=== PATIENT | female | born 1955 | race Caucasian/White ===

== ENCOUNTER 2018-02-17 14:21 | Emergency (ER) | payer OTHER ==
--- NOTE | 2018-02-17 14:58 | EDPHY ---
HPI/HX/ROS/PE/MDM Narrative: CHIEF COMPLAINT: "pain in the center of my chest" HPI: The patient is a 62 y/o female 1 week out from a recent cardiac catheterization complaining of waxing and waning substernal "heavy" chest pain onset today around 14:00, about 1.5 hours ago while sitting at work. Earlier this month she had a syncopal episode with nausea and sensation of "something terribly wrong" and eventually saw a PCP that performed an EKG that showed changes. This ultimately led to an admission at [facility] and on 02/09/18, 8 days ago, she underwent a catheterization and stress echocardiogram. She reports the echocardiogram showed the "left side of my heart doesn't move correctly when I' m stressed," but the catheterization was essentially normal. She is scheduled to follow up with her rolling machine tender and a GI doctor soon. Today is the first time she has experienced chest pain. She notes associated "teeth pain." No associated dyspnea, nausea, vomiting, abdominal pain, fever, recent illness, recent trauma. REVIEW OF SYSTEMS: Aside from elements discussed in the HPI, a comprehensive 10-point review of systems was reviewed and is negative. PMH: Abnormal EKG/echo - Dr. Katt Roman. SOCIAL HISTORY: Smoker. Employed. Prior medical records reviewed via [employer] including cardiac procedures at [facility] 02/09/18. Stress echo showed anterolateral ST depression with anterolateral wall motion abnormalities during stress. PHYSICAL EXAM: General:Patient is alert, in no acute distress. ENT:Eyes are normal to inspection. ENT inspection normal. Neck: Normal inspection. Full range of motion. Respiratory:No respiratory distress. Breath sounds normal bilaterally. Cardiovascular: Regular rate and rhythm. Strong peripheral pulses. Normal cap refill. Abdomen:The abdomen is nontender to palpation. There are no peritoneal signs. Back: Normal to inspection. No tenderness to palpation. Skin: Normal color. No rash. Warm and dry. Extremities: Normal appearance. Full range of motion. Neuro: Oriented x3. Normal motor function. Normal sensory function. ED Course: This is a 62 y/o female with a history of a recent abnormal stress echocardiogram and clear catheterization who presents with a 1.5-hour history of substernal chest pressure onset while at rest at work today. Pain has been relatively constant, though is currently waning somewhat. She noted some radiation of pain to her teeth/jaw. Plan for standard chest pain work up including IV, labs, EKG, chest x-ray. 0.4mg SL nitroglycerin administered. The 12 lead EKG was interpreted by myself. Normal sinus rhythm. See hard copy and/or "tracemaster" electronic copy for interpretation. POC troponin: 0.00. 1605: No improvement after nitroglycerin. 1609: Consulted with Dr. Pak, rolling machine tender. He recommends GI cocktail and repeat troponin. 1625: Reassessed patient and discussed findings and recommendations. She now reports her pain has mostly improved except when she takes a deep breath. D- dimer ordered. 1918: Patient chest pain free and wants to go home. Repeat troponin at 6h is still negative, but slightly up from previous. I discussed this with patient and offered her admission for further testing and observation as well as cardiology consultation, but she declines. She promises to return to the ED immediately for any return of chest pain or worsening of condition. - Data Points Imaging Results: Imaging Impressions Chest X-Ray 02/17/18 15:33 Impression: Underlying hyperinflation and interstitial lung disease; no acute cardiopulmonary abnormality identified.. Imaging: I viewed and interpreted images myself Laboratory Results: Laboratory Results 02/17/18 14:44 02/17/18 14:44 02/17/18 02/17/18 02/17/18 18:08 14:55 14:47 WBC RBC Hgb Hct MCV MCH MCHC RDW Plt Count MPV Neut % (Auto) Lymph % (Auto) Candler % (Auto) Eos % (Auto) Baso % (Auto) Nucleat RBC Rel Count Absolute Neuts (auto) Absolute Lymphs (auto) Absolute Monos (auto) Absolute Eos (auto) Absolute Basos (auto) Absolute Nucleated RBC Immature Gran % Immature Gran # D-Dimer 0.42 ug/mLFEU ug/mLFEU (0.00-0.50) Sodium Potassium Chloride Carbon Dioxide Anion Gap BUN Creatinine Estimated GFR Glucose Calcium POC Troponin I 0.01 ng/mL ng/mL 0.00 ng/mL ng/mL (0.00-0.08) (0.00-0.08) 02/17/18 02/17/18 14:44 14:44 WBC 5.91 10^3/uL 10^3/uL (3.80-9.50) RBC 3.55 10^6/uL L 10^6/uL (4.18-5.33) Hgb 10.9 g/dL L g/dL (12.6-16.3) Hct 32.8 % L % (38.0-47.0) MCV 92.4 fL fL (81.5-99.8) MCH 30.7 pg pg (27.9-34.1) MCHC 33.2 g/dL g/dL (32.4-36.7) RDW 12.6 % % (11.5-15.2) Plt Count 266 10^3/uL 10^3/uL (150-400) MPV 10.0 fL fL (8.7-11.7) Neut % (Auto) 55.8 % % (39.3-74.2) Lymph % (Auto) 32.1 % % (15.0-45.0) Candler % (Auto) 10.3 % % (4.5-13.0) Eos % (Auto) 0.8 % % (0.6-7.6) Baso % (Auto) 0.7 % % (0.3-1.7) Nucleat RBC Rel Count 0.0 % % (0.0-0.2) Absolute Neuts (auto) 3.29 10^3/uL 10^3/uL (1.70-6.50) Absolute Lymphs (auto) 1.90 10^3/uL 10^3/uL (1.00-3.00) Absolute Monos (auto) 0.61 10^3/uL 10^3/uL (0.30-0.80) Absolute Eos (auto) 0.05 10^3/uL 10^3/uL (0.03-0.40) Absolute Basos (auto) 0.04 10^3/uL 10^3/uL (0.02-0.10) Absolute Nucleated RBC 0.00 10^3/uL 10^3/uL (0-0.01) Immature Gran % 0.3 % % (0.0-1.1) Immature Gran # 0.02 10^3/uL 10^3/uL (0.00-0.10) D-Dimer Sodium 140 mEq/L mEq/L (135-145) Potassium 3.9 mEq/L mEq/L (3.3-5.0) Chloride 106 mEq/L mEq/L (97-110) Carbon Dioxide 22 mEq/l mEq/l (22-31) Anion Gap 12 mEq/L mEq/L (8-16) BUN 25 mg/dL H mg/dL (7-23) Creatinine 1.0 mg/dL mg/dL (0.6-1.0) Estimated GFR 57 Glucose 103 mg/dL H mg/dL (70-100) Calcium 10.4 mg/dL mg/dL (8.5-10.4) POC Troponin I Medications Given: Nitroglycerin (Nitrostat) 0.4 mg SL Q5M PRN PRN Reason: Chest Pain Last Admin: 02/17/18 15:39 Dose: 0.4 mg Discontinued Medications Al Hydroxide/Mg Hydroxide (Maalox Susp) 30 ml PO ONCE ONE Stop: 02/17/18 16:14 Last Admin: 02/17/18 16:39 Dose: 30 ml Hyoscyamine Sulfate (Levsin, Hyomax-Sl) 0.25 mg PO ONCE ONE Stop: 02/17/18 16:14 Last Admin: 02/17/18 16:39 Dose: 0.25 mg Lidocaine (Lidocaine 2% Viscous) 15 ml PO ONCE ONE Stop: 02/17/18 16:14 Last Admin: 02/17/18 16:39 Dose: 15 ml Point of Care Test Results: Chemistry 02/17/18 02/17/18 18:08 14:47 POC Troponin I 0.01 ng/mL ng/mL 0.00 ng/mL ng/mL (0.00-0.08) (0.00-0.08) General Time Seen by Provider: 02/17/18 14:46 Initial Vital Signs: Initial Vital Signs Temperature (C) 36.6 C 02/17/18 14:25 Heart Rate 83 02/17/18 14:25 Respiratory Rate 16 02/17/18 14:25 Blood Pressure 131/72 H 02/17/18 14:25 O2 Sat (%) 94 02/17/18 14:25 O2 Delivery Mode Room Air Allergies/Adverse Reactions: codeine Allergy (Verified 02/17/18 14:24) Home Medications: Medication Instructions Recorded Wellbutrin Sr 02/17/18 Zyrtec-D Tablet 02/17/18 Departure - Departure Disposition: Home, Routine, Self-Care Clinical Impression: Chest pain Condition: Good Instructions: Chest Pain (ED) Additional Instructions: Follow-up with your primary doctor within 72 hours. Return to the Emergency Department for fever, chest pain, shortness of breath, increasing pain or other worsening of condition. Follow up with a rolling machine tender for further testing, as soon as possible, within one week. As we discussed, it is impossible to fully rule out heart disease as the cause of your chest pain in the emergency department. We would be happy to reevaluate you and observe you in the hospital at any time. Referrals: DENIS DYER [Other] - As per Instructions Report Scribed for: Geovanny Holley Report Scribed by: Theresa Atkins Date of Report: 02/17/18 Time of Report: 14:51 Physician Review and Approval Statement: Portions of this note were transcribed by an ED scribe. I personally performed the history, physical exam, and medical decision making; and confirm the accuracy of the information in the transcribed note.
[2018-02-17 15:03] LABS: PLATELET COUNT 266 10^3/uL (150-400)
[2018-02-17] MEDS ORDERED: NITROGLYCERIN 0.4 MG BTL SL PRN (15:33)
[2018-02-17] MEDS ORDERED: LIDOCAINE 2% VISCOUS 15 ML UDCUP PO ONE (16:13)
[2018-02-17] MEDS ORDERED: MAG HYDROX/AL HYDROX/SIMETH 30 ML UDCUP PO ONE (16:13)
[2018-02-17] MEDS ORDERED: HYOSCYAMINE SULFATE 0.125 MG TAB PO ONE (16:13)
[2018-02-17 19:29] VITALS: BP 104/67
--- NOTE | 2018-02-17 21:01 | CPEKG ---
Test Reason : OPEN Blood Pressure : / mmHG Vent. Rate : 072 BPM Atrial Rate : 071 BPM P-R Int : 129 ms QRS Dur : 097 ms QT Int : 390 ms P-R-T Axes : 052 083 037 degrees QTc Int : 427 ms Sinus rhythm Borderline right axis deviation Confirmed by Liset Guerra ([id number]) on 02/17/2018 9:00:42 PM Referred By: Confirmed By:Liset Guerra
== END 2018-02-17 19:28 | disposition home or self-care (01) ==
DX: R07.9 Chest pain, unspecified (principal); Z98.890 Other specified postprocedural states
CPT/HCPCS: 84484-PO